=== PATIENT | female | born 1980 | race Caucasian/White ===

== ENCOUNTER 2021-07-14 06:01 | Day surgery (SDC) | payer OTHER ==
[~2021-07-14] VITALS: Ht 157.5 cm; Wt 71.8 kg
[2021-07-14] MEDS ORDERED: LIDOCAINE 2% 30 ML JELLY TP ONE (06:02)
[2021-07-14] MEDS ORDERED: ALBUTEROL SULFATE 2.5 MG/0.5 ML NEB SOLUTION NEB ONE (06:02)
[2021-07-14] MEDS ORDERED: LIDOCAINE 4% 50 ML SOLUTION TP ONE (06:02)
[2021-07-14] MEDS ORDERED: BENZOCAINE 20% 50 MCG/SPRAY 57 GM TP ONE (06:02)
[2021-07-14] MEDS ORDERED: SODIUM CHLORIDE 0.9% 1,000 ML ONE (06:55)
[2021-07-14 07:38] LABS: COVID AG,FIA SOURCE NASOPHARYNGEAL
[2021-07-14] MEDS ORDERED: FLUT1BLS13 IH (07:51)
[2021-07-14] MEDS ORDERED: MIDAZOLAM HCL 5 MG/ML VIAL ONE (08:10)
[2021-07-14] MEDS ORDERED: FentaNYL CITRATE PF 100 MCG/2 ML VIAL ONE (08:10)
[2021-07-14] MEDS ORDERED: SODIUM CHLORIDE 0.9% 1,000 ML IV ONE (08:30)
[2021-07-14] MEDS ORDERED: MethylPREDNISolone SOD SUCC 125 MG/2 ML VIAL IVP ONE (10:15)
[2021-07-14] MEDS ORDERED: MethylPREDNISolone SOD SUCC 125 MG/2 ML VIAL ONE (10:36)
[2021-07-14] MEDS ORDERED: OXYGEN THERAPY IH SCH (20:00)
== END 2021-07-14 12:00 | disposition home or self-care (01) ==
LOC: SURGERY 06:01
PROVIDERS: ATTEND Internal Medicine Critical Care Medicine
DX: J38.4 Edema of larynx (principal); B37.0 Candidal stomatitis; J45.909 Unspecified asthma, uncomplicated; Z79.899 Other long term (current) drug therapy; Z98.890 Other specified postprocedural states
CPT/HCPCS: 31623; 31624; 36415; 71045; 84703; 86403; 86606 ×2; 86635; 86698; 87015; 87070; 87101; 87205; 87206; 87220; 87305; 87426; 88108; 88184; 88185; 88312; C9803; J2250; J2930; J3010; J7030; J7613; Z7610